=== PATIENT | male | born 1990 | race Caucasian/White ===

== ENCOUNTER 2018-02-21 22:16 | Emergency (ER) | payer OTHER ==
[~2018-02-21] VITALS: Ht 188 cm; Wt 108.2 kg
[2018-02-21 22:19] VITALS: BP 136/90
--- NOTE | 2018-02-21 22:22 | NUR ---
TO LOBBY, A/W BED, AMBULATORY, VSS, ERMD NOTED
--- NOTE | 2018-02-22 02:40 | NUR ---
PATIENT AMBULATED TO ER BED 9.
--- NOTE | 2018-02-22 03:00 | NUR ---
PATIENT IS A 27 Y/O MALE WHO PRESENTS TO THE ED C/O THUMB PAIN. PT STATES THAT HE SLAMMED R THUMB ON CAR DOOR. PT REPORTS 2/10 ACHING R THUMB PAIN THAT DOES NOT RADIATE. NOTED DISCOLORATION OR OBVIOUS DEFORMITY. PT AWAKE AND ALERT, RR EVEN/UNLABORED. PT REPOSITIONED FOR COMFORT, BED IN LOWEST POSITION. ER MD DR. HOLLIS NOTIFIED. WILL CONTINUE TO MONITOR.
[2018-02-22 04:15] VITALS: BP 121/82
--- NOTE | 2018-02-22 04:15 | NUR ---
Patient discharged with v/s stable. Written and verbal after care instructions given and explained. Patient alert, oriented and verbalized understanding of instructions. Ambulatory with steady gait. All questions addressed prior to discharge. ID band removed. Patient advised to follow up with PMD. Rx of NORCO 5MG-325MG AND IBUPROFEN 600MG given. Patient educated on indication of medication including possible reaction and side effects. Opportunity to ask questions provided and answered.
== END 2018-02-22 04:15 | disposition home or self-care (01) ==
LOC: MED 22:16
DX: S60.021A Contusion of right index finger without damage to nail, initial encounter (principal); W22.8XXA Striking against or struck by other objects, initial encounter; Y93.89 Activity, other specified; Y92.89 Other specified places as the place of occurrence of the external cause; Y99.8 Other external cause status
CPT/HCPCS: 73140; 99284